=== PATIENT | male | born 1965 | race Caucasian/White ===

== ENCOUNTER → 2021-01-19 | Outpatient (CLI) | payer BC ==
[~2021-01-19] MED LIST: Aspirin EC81 MG PO; B COMPLEX-FOLI1 EACH PO; Cipro500 MG PO; Flagyl500 MG PO; LANS30EC PO; LEVO-T75 MC1 PO; LISI5 PO; ROSU10TA PO; VITAMIN D325 MC1 PO
== END | disposition home or self-care (01) ==
LOC: LAB SHORT 10:58
DX: L82.1 Other seborrheic keratosis (principal)
CPT/HCPCS: 88305

== ENCOUNTER → 2022-10-31 | Outpatient (CLI) | payer BC | LOC: PLD 09:02 → LAB SHORT 09:02 | DX: D48.5 Neoplasm of uncertain behavior of skin (principal) | CPT/HCPCS: 88304 ==

== ENCOUNTER 2024-10-13 08:55 | Day surgery (SDC) | payer OTHER ==
[~2024-10-13] VITALS: Ht 185.4 cm; Wt 102.8 kg
[~2024-10-13 08:55] MED LIST changes: +Co Q-1030 MG PO; +Lactated Ringer's 1,000 ML IV ONE; +SILD50TA PO; +propofoL 50 ML IV ONE
[2024-10-13] MEDS ORDERED: Lactated Ringer's 1,000 ML IV ONE (09:48)
[2024-10-13 13:42] VITALS: BP 136/84
== END 2024-10-13 11:13 | disposition home or self-care (01) ==
LOC: ORSCSDS 08:55
PROVIDERS: Surgery
PROC: 0DBM8ZX Excision of Descending Colon, Via Natural or Artificial Opening Endoscopic, Diagnostic (ICD-10-PCS; principal; 2024-10-13 10:15)
PROC: 0DBH8ZX Excision of Cecum, Via Natural or Artificial Opening Endoscopic, Diagnostic (ICD-10-PCS; principal; 2024-10-13 10:15)
DX: Z12.11 Encounter for screening for malignant neoplasm of colon (principal); D12.0 Benign neoplasm of cecum; K63.5 Polyp of colon; K57.30 Diverticulosis of large intestine without perforation or abscess without bleeding; K21.9 Gastro-esophageal reflux disease without esophagitis; E78.5 Hyperlipidemia, unspecified; I10 Essential (primary) hypertension; E03.9 Hypothyroidism, unspecified; Z79.899 Other long term (current) drug therapy
CPT/HCPCS: 88305; J2704; J7120